=== PATIENT | male | born 1980 | race Caucasian/White ===

== ENCOUNTER 2020-08-15 18:19 | Emergency (ER) | payer OTHER ==
[~2020-08-15] VITALS: Ht 193 cm; Wt 90.7 kg
[2020-08-15] MEDS ORDERED: ONDANSETRON HCL INJ 2MG/ML 2ML 2 MG/ML VIAL IV STA (18:53)
[2020-08-15] MEDS ORDERED: MECLIZINE HCL 12.5 MG TAB PO ONE (19:00)
--- NOTE | 2020-08-15 19:56 | Diagnostic Imaging Report ---
History: Dizziness Comparison studies: None Technique: Axial images were obtained from the skull base to the vertex. Coronal and sagittal reconstructions obtained from the axial data. Dose modulation, iterative reconstruction, and/or weight based adjustment of the mA/kV was utilized to reduce the radiation dose to as low as reasonably achievable. Intravenous contrast: None Findings: Scalp/skull: A linear fracture in the squamous left occipital bone is not associated with an overlying scalp hematoma. Otherwise, no additional abnormalities. No acute fracture, blastic or lytic lesions. Extra-axial spaces: No masses. No fluid collections. Brain sulci: Mildly prominent. Ventricles: Mild compensatory dilatation. No hydrocephalus. Parenchyma: Cortical and subcortical CSF-like encephalomalacic changes (bilateral orbitofrontal and the left temporal pole of the result of previous trauma. Additional cortical and subcortical encephalomalacic changes in the left inferior cerebellum, under the previously described fracture, are presumed to be posttraumatic as well No masses, hemorrhage, acute or additional chronic cortical vascular insults. Sellar/suprasellar region: No abnormalities Craniocervical junction: Patent foramen magnum. No Chiari one malformation. Incidental findings: Nonobstructing mucosal thickening in the left maxillary sinus.. IMPRESSION: No acute intracranial abnormalities. No previous studies available for comparison Chronic findings: 1. Mild generalized volume loss. 2. A linear fracture in the left occipital bone is associated with bilateral posttraumatic changes (bilateral orbitofrontal, left anterior temporal and in the left inferoposterior cerebellum). Signed by: Dr. Sergio Montano M.D. on 08/15/2020 7:52 PM
--- NOTE | 2020-08-15 20:16 | Emergency Department Note ---
History of Present Illnes History of Present Illness Chief Complaint: Abdominal Complaints History of Present Illness This is a 40 year old male hief Complaint Comment PER PATIENT, PT C/O VOMITTING SINCE THIS MORNING, STATES HE HAS VOMITTED 6 TIMES SINCE THEN, UNABLE TO KEEP ANYTHING DOWN, PT C/O BEING DIZZY, NEEDING STANDBY ASSISTANCE WALKING TO TRIAGE ROOM, PT STATES HE HAS BEEN UNSTEADY ALL DAY LONG AND FEELS LIKE HE CANT BALANCE HIMSELF? . Historian: Patient Arrival Mode: Car Onset (how long ago): day(s) (1) Location: [place] DIZZY Quality: DIZZY Radiation: Denies non-radiation, Denies back, Denies neck, Denies extremity, Denies abdomen, Denies periumbilical, Denies flank, Denies proximal, Denies distal, Denies other Severity: moderate Onset quality: gradual Duration (how long): day(s) (1) Timing of current episode: intermittent Progression: waxing and waning Chronicity: new Context: Denies recent illness, Denies recent surgery, Denies recent immobilization, Denies recent travel, Denies trauma/injury, Denies new medicatio ns, Denies hx of DVT/PE, Denies non-compliance w/ medications, Denies other Relieving factors: none Exacerbating factors: none Associated symptoms: Denies denies other symptoms, Denies confusion, Denies chest pain, Denies cough, Denies diaphoresis, Denies fever/chills, Denies headaches, Denies loss of appetite, Denies malaise, Denies nausea/vomiting, Denies rash, Denies seizure, Denies shortness of breath, Denies syncope, Denies weakness, Denies other Treatments prior to arrival: none Past Medical/Family History Physician Review I have reviewed the patient's past medical and family history. Any updates have been documented here. Past Medical History Recent Fever: No Clinical Suspicion of Infectio: No New/Unexplained Change in Ment: No Past Medical History: None Past Surgical History: None Social History Smoking Cessation: Never Smoker Counseling Performed: No Alcohol Use: None Any Illegal Drug Use: No Physically hurt or threatened: No Other Any Pre-Existing Lines (PICC,: No Review of Systems Review of Systems Constitutional: Reports no symptoms EENTM: Reports no symptoms Cardiovascular: Reports no symptoms Respiratory: Reports no symptoms Gastrointestinal: Reports no symptoms; Denies as per HPI, Denies abdominal pain, Denies constipation, Denies diarrhea, Denies nausea, Denies vomiting, Denies other Genitourinary: Reports no symptoms; Denies as per HPI, Denies discharge, Denies dysuria, Denies frequency, Denies hematuria, Denies pain, Denies other Musculoskeletal: Reports no symptoms; Denies as per HPI, Denies back pain, Denies gout, Denies joint pain, Denies joint swelling, Denies muscle pain, Denies muscle stiffness, Denies neck pain, Denies other Integumentary: Reports no symptoms; Denies as per HPI, Denies change in color, Denies change in hair/nails, Denies dryness, Denies lesions, Denies lumps, Denies rash, Denies poor turgor, Denies ecchymosis, Denies other Neurological: Reports no symptoms Psychological: Reports no symptoms Endocrine: Reports no symptoms Hematological/Lymphatic: Reports no symptoms Physical Exam Related Data Allergies: Coded Allergies: trazodone (Verified Allergy, Unknown, 08/15/20) Triage Vital Signs Vital Signs Date Time Temp Pulse Resp B/P (MAP) Pulse Ox O2 Delivery O2 Flow Rate FiO2 08/15/20 18:48 98.9 76 18 148/84 98 Room Air Vital signs reviewed: Yes Physical Exam CONSTITUTIONAL Constitutional: Present well-developed, Present well-nourished HENT HENT: Present normocephalic, Present atraumatic, Present oropharynx clear/moist, Present nose normal HENT L/R: Present left ext ear normal, Present right ext ear normal EYES Eyes: Reports PERRL, Reports conjunctivae normal NECK Neck: Present ROM normal; Absent supple, Absent thyromegaly, Absent tracheal deviation, Absent stridor, Absent JVD, Absent cervical adenopathy, Absent carotid bruit, Absent other PULMONARY Pulmonary: Present effort normal, Present breath sounds normal; Absent respiratory distress, Absent rales, Absent rhonchi, Absent chest tenderness, Absent other CARDIOVASCULAR Cardiovascular: Present regular rhythm, Present heart sounds normal, Present capillary refill normal, Present normal rate; Absent irregular rhythm, Absent intact distal pulses, Absent tachycardia, Absent bradycardia, Absent murmur, Absent gallop, Absent friction rub, Absent palpable pulses, Absent strong pulses, Absent weak pulses, Absent LLE edema, Absent RLE edema, Absent other GASTROINTESTINAL Abdominal: Present soft, Present nontender, Present bowel sounds normal; Absent distension, Absent tender, Absent guarding, Absent mass, Absent rebo und, Absent hernia, Absent left CVA tenderness, Absent right CVA tenderness, Absent other GENITOURINARY Genitourinary: Present exam deferred; Absent penis normal, Absent rectum normal, Absent prostate normal, Absent guaiac result, Absent penis tenderness, Absent other SKIN Skin: Present warm, Present dry MUSCULOSKELETAL Musculoskeletal: Present ROM normal NEUROLOGICAL Neurological: Present alert, Present oriented x 3, Present no gross motor or sensory deficits PSYCHOLOGICAL Psychological: Present mood/affect normal, Present judgement normal Results Imaging Imaging results reviewed: Yes Assessment & Plan Medical Decision Making MDM BLEEDING TUMOR Reassessment Reassessment BETTER Assessment & Plan Final Impression: (1) Dizziness (2) Vomiting (3) Vertigo Depart Disposition: HOME, SELF-CARE Last Vital Signs Date Time Temp Pulse Resp B/P (MAP) Pulse Ox O2 Delivery O2 Flow Rate FiO2 08/15/20 18:48 98.9 76 18 148/84 98 Room Air Home Meds Active Scripts Meclizine Hcl (MECLIZINE HCL) 12.5 Mg Tablet, 25 MG PO TID for dizziness, #20 TAB Prov:MEG CARVALHO MD 08/15/20 Ondansetron Hcl* (ZOFRAN*) 4 Mg Tablet, 4 MG SL Q6H PRN for NAUSEA, #14 MG 0 Refills Prov:MEG CARVALHO MD 08/15/20 Medications in the ED Ondansetron HCl 4 mg NOW STAT IV Last administered on 08/15/20at 19:09; Admin Dose 4 MG; Start 08/15/20 at 18:53; Stop 08/15/20 at 19:11; Status DC Meclizine HCl 12.5 mg ONCE ONCE PO Last administered on 08/15/20at 19:10; Admin Dose 12.5 MG; Start 08/15/20 at 19:00; Stop 08/15/20 at 19:11; Status DC MEG CARVALHO MD Aug 15, 2020 20:16
[2020-08-15] MEDS ORDERED: MECLIZINE HCL12.5 MG PO (20:18)
[2020-08-15] MEDS ORDERED: ZOFRAN4 MG SL (20:18)
== END 2020-08-15 20:35 | disposition home or self-care (01) ==
LOC: FSED 18:55
DX: R42 Dizziness and giddiness (principal); R11.10 Vomiting, unspecified; R51.9 Headache, unspecified
CPT/HCPCS: 70450; 99284; J2405; J8597